=== PATIENT | female | born 1980 | race Caucasian/White ===

== ENCOUNTER 2017-05-24 08:05 | Day surgery (SDC) | payer BC ==
--- NOTE | 2017-05-18 16:02 | GHP ---
[f rep st] HISTORY AND PHYSICAL HISTORY OF PRESENT ILLNESS: The patient is a G2,, L0, 36-year-old, who came in on 05/13/2017 for a viability and dating as well as a new OB. We did a formal ultrasound that showed no activity, 1 fetus. Dates were measuring differently than her LMP. Her LMP showed 9 weeks and 0 days, AUA was 7 weeks and 1 day. Mean sac was 8 weeks and 1 day. The patienthad beta quants x2done. The 1st quant was on May 13 at 105,900 with progesterone at 17.9, and then the followup quant was 05/15/2017 at 91,593 with progesterone at 20.5. The patient had blood type done. The patient was B positive. No RhoGAM was needed. MEDICAL HISTORY: IBS possibly per patient. The patient has mild anxiety. SURGICAL HISTORY: Benign. Nonsurgical hospitalization at 14 years old, toxic shock syndrome. PRESENT HISTORY: AMA and missed AB. PREVIOUS HISTORY: 2003, an EAB. GYNECOLOGIC HISTORY: 14 years old at menarche, 28 day interval, length was 3 days, 0 abnormalities. LMP was 03/11/2017 for the present and positive test was on 04/08/2017. SOCIAL HISTORY: Denies tobacco use. Denies drug use. Is to [employer]. ALLERGIES: NKDA. MEDICATIONS: vitamins. REVIEW OF SYSTEMS: Review of systems x8 benign. PHYSICAL ASSESSMENT: GENERAL: Patient is awake, alert, oriented x3. LUNGS: Clear bilaterally. ABDOMEN: Bowel sounds are positive in all 4 quadrants. EXTREMITIES: DTRs are 1+ bilaterally with no clonus. Homans sign is negative. PLAN OF CARE: 1. A D and C for missed ab. 2. Patient's blood type is B positive per patient. 3. The patient has elected to do a D and C, as plan of care. /[id number]/MODL MTDD
[2017-05-24] MEDS ORDERED: DOXYCYCLINE HYCLATE 100 MG CAP/TAB PO ONE ×2 (08:55→11:18)
[2017-05-24] MEDS ORDERED: LR 1,000 ML IV ONE (08:55)
[2017-05-24 09:25] LABS: % IMMATURE GRANULYOCYTES 0.2 % (0.0-1.1); ABSOLUTE IMMATURE GRANULOCYTES 0.01 10^3/uL (0.00-0.10); ADD DIFF? NO; ADD MORPH? NO; ADD SCAN? NO; ATYPICAL LYMPHOCYTE FLAG 10 (0-99); FRAGMENT RBC FLAG 0 (0-99); HEMATOCRIT 38.7 % (38.0-47.0); HEMOGLOBIN 14.1 g/dL (12.6-16.3); LEFT SHIFT FLG 0 (0-99); LIPEMIA HEMOLYSIS FLAG 90 (0-99); MEAN CELL HEMOGLOBIN 33.3 pg (27.9-34.1); MEAN CELL HEMOGLOBIN CONCENTR. 36.4 g/dL (32.4-36.7); MEAN CELL VOLUME 91.5 fL (81.5-99.8); MEAN PLATELET VOLUME 10.2 fL (8.7-11.7); PLATELET CLUMPS FLAG 0 (0-99); PLATELET COUNT 218 10^3/uL (150-400); RED BLOOD CELL COUNT 4.23 10^6/uL (4.18-5.33); RED CELL DISTRIBUTION WIDTH 12.4 % (11.5-15.2)
[2017-05-24] MEDS ORDERED: MIDAZOLAM 2 MG/2 ML VIAL IVP ONE (09:38)
--- NOTE | 2017-05-24 09:39 | PDANEPAE ---
ANE Past Medical History - Pulmonary History Hx Sleep Apnea: No Sleep Apnea Screening Result - Last Documented: Negative ANE Review of Systems Review of Systems: ANE Patient History - Allergies Allergies/Adverse Reactions: No Known Allergies Allergy (Unverified 05/19/17 08:39) - Anes Hx Anes Hx: no prior problems - Smoking Hx Smoking Status: Never smoked ANE Labs/Vital Signs - Labs Result Diagrams: 05/24/17 08:00 - Vital Signs Blood Pressure: 107/70 Heart Rate: 72 Respiratory Rate: 18 O2 Sat (%): 96 Height: 157.48 cm Weight: 52.163 kg ANE Physical Exam - Airway Neck exam: FROM Mallampati Score: Class 1 Mouth exam: normal dental/mouth exam - Pulmonary Pulmonary: no respiratory distress, no rales or rhonchi, clear to auscultation - Cardiovascular Cardiovascular: regular rate and rhythym, no murmur, rub, or gallop - ASA Status ASA Status: I ANE Anesthesia Plan Anesthesia Plan: GA with mask
[2017-05-24] MEDS ORDERED: fentaNYL 100 MCG/2 ML INJ IVP PRN (09:44)
[2017-05-24] MEDS ORDERED: NALOXONE HCL 0.4 MG/ML INJ IVP PRN (09:44)
[2017-05-24] MEDS ORDERED: LR 500 ML IV PRN (09:44)
[2017-05-24] MEDS ORDERED: ONDANSETRON 4 MG/2 ML VIAL IVP PRN (09:44)
[2017-05-24] MEDS ORDERED: DEXAMETHASONE 4 MG/ML VIAL IVP PRN (09:44)
[2017-05-24] MEDS ORDERED: MEPERIDINE 25 MG/ML SYR IVP PRN (09:44)
[2017-05-24] MEDS ORDERED: OXYCODONE/APAP 5/325 TAB PO PRN (09:44)
[2017-05-24] MEDS ORDERED: PROPOFOL 200 MG/20 ML VIAL ONE ×2 (09:46→10:02)
[2017-05-24] MEDS ORDERED: fentaNYL 100 MCG/2 ML INJ ONE (09:46)
[2017-05-24] MEDS ORDERED: KETOROLAC 30 MG/1 ML SDV ONE (10:23)
[2017-05-24] MEDS ORDERED: IBUPROFEN 600 MG TAB PO PRN (10:26)
--- NOTE | 2017-05-24 10:26 | PDHPUP ---
History & Physical Update H&P update statement: This history and physical update is based on an assessment of the patient which was completed after admission or registration (within 24 hours), but prior to the surgery/procedure.
--- NOTE | 2017-05-24 10:27 | POSTOPPROG ---
Post Op Note Date of Operation: 05/24/17 Surgeon: Emerita Arredondo Anesthesiologist: Dr Vasyl Queen Anesthesia: GET(General Endotracheal) Pre-op Diagnosis: Missed @ 8 weeks Post-op Diagnosis: same Procedure: suction D and C Inf/Abcess present in the surg proc area at time of surgery?: No Depth: Organ Space EBL: Minimal Total fluids administered: 1300 Complications: none Specimen(s): [products of conception
--- NOTE | 2017-05-24 10:32 | POSTANESTH ---
Post Anesthetic Evaluation Cardiovascular Status: Normal, Stable, Similar to Pre-Op Cond Respiratory Status: Normal, Stable, Similar to Pre-op Cond. Level of Consciousness/Mental Status: Can Participate in Eval, Alert and Oriented Pain Control: Adequate, Prn Tx Ordered Nausea/Vomiting Control: Adequate, Prn Tx Ordered Complications Possibly Related to Anesthesia: None Noted
[2017-05-24 11:16] VITALS: PULSE 60
--- NOTE | 2017-05-24 11:25 | GOP ---
[f rep st] OPERATIVE REPORT DATE OF OPERATION: 05/24/2017 SURGEON: Emerita Arredondo MD ANESTHESIA: General anesthesia. ANESTHESIOLOGIST: Vasyl Queen MD PREOPERATIVE DIAGNOSIS: Missed at 9 weeks by dates, 7 weeks by size. POSTOPERATIVE DIAGNOSIS: Missed at 9 weeks by dates, 7 weeks by size. PROCEDURE PERFORMED: Suction dilation curettage. FINDINGS: SPECIMENS: Will be products of conception. ESTIMATED BLOOD LOSS: Less than 10 mL. INDICATIONS: Nancy is a 36-year-old 2, para 0-0-1-0, who was diagnosed with a missed aborti on on 05/15/2017. She had originally presented 05/13/2017 for a new OB with viability ultrasound. Th e formal ultrasound revealed a fetus that was size less than dates by 2 weeks, measuring 7 weeks 1 da y and had no cardiac activity. The patient had quantitative beta HCGs done which were elevated in the 10,000 range and then repeat quantitative beta HCG decreased. Therefore, the diagnosis of mis sed was made. The patient was given treatment options of medical management versus surgical management. The patient chose to have surgical management with a suction dilation and curettage. S he was consented for the procedure. She understood the risks and benefits; the risks including bleed ing, infection, damage to the uterus including possible risk of perforation, possible risk of damage to other organs if perforation were to occur, risk of incomplete procedure with need for spontaneous expulsion and/or repeat procedure at a later time, and compromise of future fertility. The patient u nderstood these risks and benefits and agreed to proceed. DESCRIPTION OF PROCEDURE: Patient was taken to the operating room where she was placed under general anesthesia without difficulty. She was prepped and draped in the dorsal lithotomy position and, aft er a WHO time-out was performed, an open-sided speculum was placed in the vagina, and a single-tooth tenaculum was used to grasp the anterior lip of the cervix. The uterus sounded to 9 cm. The cervix was then progressively dilated with Reyes dilators to a #8.5. A #8 curved suction curette was then g ently advanced from the cervix to the fundus, and suction was applied and tissue was obtained over se veral passages of the suction device. Sharp curettage was then performed in a clockwise fashion unti l a gritty texture was palpated throughout the entire uterine contents. No tissue was obtained. Fin al passes of the suction device revealed no further tissue and minimal bleeding. The tenaculum was r emoved. There was a small area of bleeding on the anterior cervix from the tenaculum. This was caut erized with silver nitrate. The speculum was removed. The patient had a transvaginal pelvic ultraso und performed and there was a thin endometrial stripe. No further products of conception were seen. The patient did have a full bladder visualized on ultrasound and her bladder was drained with a red rubber catheter prior to her waking up. The patient tolerated the procedure well. Sponge, lap, need le, and instrument counts were correct x2. The patient went to the recovery room in good condition. URINE OUTPUT: 200 cc /[id number]/MODL
[2017-05-24 11:41] VITALS: BP 95/58; RESP 16; O2SAT 98
[2017-05-24 11:45] VITALS: TEMP 98.1
== END 2017-05-24 11:55 | disposition home or self-care (01) ==
LOC: FOBOP 08:05
PROVIDERS: ATTEND Obstetrics & Gynecology
PROC: 10D17ZZ Extraction of Products of Conception, Retained, Via Natural or Artificial Opening (ICD-10-PCS; principal; 2017-05-24)
DX: O02.1 Missed abortion (principal)
CPT/HCPCS: J1885; J2250; J2704; J3010

== ENCOUNTER → 2018-05-15 | Outpatient (CLI) | payer BC | LOC: FIMAGING 07:37 | PROVIDERS: ATTEND Obstetrics & Gynecology | DX: O09.522 Supervision of elderly multigravida, second trimester (principal); Z3A.20 20 weeks gestation of pregnancy ==